=== PATIENT | male | born 1955 | race Caucasian/White ===

== ENCOUNTER → 2020-01-17 | Outpatient (CLI) | payer MEDICARE | END | disposition home or self-care (01) | LOC: CFH 09:53 | PROVIDERS: ATTEND Internal Medicine Cardiovascular Disease | DX: I08.3 Combined rheumatic disorders of mitral, aortic and tricuspid valves (principal); I11.9 Hypertensive heart disease without heart failure; I48.91 Unspecified atrial fibrillation | CPT/HCPCS: 93306 ==

== ENCOUNTER → 2020-05-06 | Outpatient (CLI) | payer MEDICARE ==
[~2020-05-06] MED LIST: OMNIPAQUE 350 MG/ML, 150 ML BOTTLE ONE
== END | disposition home or self-care (01) ==
LOC: CFH 09:32
PROVIDERS: ATTEND Internal Medicine Cardiovascular Disease
DX: I48.91 Unspecified atrial fibrillation (principal); I10 Essential (primary) hypertension; M47.814 Spondylosis without myelopathy or radiculopathy, thoracic region
CPT/HCPCS: 71046; 75572; Q9967

== ENCOUNTER 2020-05-09 06:00 | Observation (INO) | payer MEDICARE ==
[~2020-05-09] VITALS: Ht 172.7 cm; Wt 80.9 kg
[2020-05-09] MEDS ORDERED: DILT120C83 PO (06:22)
[2020-05-09] MEDS ORDERED: APIX5TAB PO (06:22)
[2020-05-09] MEDS ORDERED: FLEC50TA25 PO (06:22)
[2020-05-09 06:25] VITALS: BP 146/88
[2020-05-09] MEDS ORDERED: SODIUM CHLORIDE 0.9% 1,000 ML IV SCH ×2 (06:30)
[2020-05-09] MEDS ORDERED: MIDAZOLAM 1 MG/ML, 2ML ONE (09:02)
[2020-05-09] MEDS ORDERED: ONDANSETRON 2MG/ML, 2ML ONE ×2 (09:06→10:46)
[2020-05-09] MEDS ORDERED: PROPOFOL 10 MG/ML, 20ML ONE ×2 (09:06→10:46)
[2020-05-09] MEDS ORDERED: SUCCINYLCHOLINE 20 MG/ML, 10ML ONE (09:06)
[2020-05-09] MEDS ORDERED: ROCURONIUM 10MG/ML,5ML ONE (09:06)
[2020-05-09] MEDS ORDERED: FENTANYL PF 250 MCG/5ML ONE (09:24)
[2020-05-09] MEDS ORDERED: DEXAMETHASONE 4 MG/ML, 5ML ONE (10:46)
[2020-05-09] MEDS ORDERED: HEPARIN 1,000 UNITS/ML, 10ML ONE ×3 (10:46)
[2020-05-09] MEDS ORDERED: APIXABAN 5 MG TABLET ONE (12:13)
[2020-05-09] MEDS ORDERED: ACETAMINOPHEN 325 MG TABLET PO PRN (12:30)
[2020-05-09] MEDS: APIXABAN 5 MG TABLET PO SCH ×2 (12:47→21:19)
[2020-05-09 13:40] VITALS: BP 108/69
[2020-05-09 14:50] VITALS: BP 104/67
[2020-05-09 20:00] VITALS: BP 102/63
[2020-05-09] MEDS: COLCHICINE 0.6 MG CAPSULE PO SCH (20:41)
[2020-05-09] MEDS: FLECAINIDE 50MG TABLET PO SCH (20:41)
[2020-05-09] MEDS ORDERED: APIXABAN 5 MG TABLET PO SCH (21:00)
[2020-05-10 01:13] VITALS: BP 108/70
[2020-05-10] MEDS: COLCHICINE 0.6 MG CAPSULE PO SCH (08:38)
[2020-05-10] MEDS: FLECAINIDE 50MG TABLET PO SCH (08:38)
[2020-05-10 08:43] VITALS: BP 120/73
[2020-05-10] MEDS ORDERED: APIXABAN 5 MG TABLET PO SCH (09:00)
[2020-05-10] MEDS ORDERED: DILTIAZEM 120 MG CAP.ER.24H PO SCH (09:00)
[2020-05-10] MEDS ORDERED: COLC0.6C3 PO (12:18)
[2020-05-10] MEDS ORDERED: DILT120C83 PO (13:07)
== END 2020-05-10 13:25 | disposition home or self-care (01) ==
LOC: CACL 06:00 → ORIP 12:16 → 5SO 13:28 → DCLOUNGE 05-10 13:16
PROVIDERS: ADMIT Internal Medicine Cardiovascular Disease; ATTEND Internal Medicine Cardiovascular Disease
DX: I48.91 Unspecified atrial fibrillation (principal); Z20.822 Contact with and (suspected) exposure to COVID-19; I48.92 Unspecified atrial flutter; I10 Essential (primary) hypertension; Z79.899 Other long term (current) drug therapy
CPT/HCPCS: 85347; 93306; 93312; 93321; 93325; 93613; 93655; 93656; 93657; 93662; C1730; C1732; C1759; C1766; C1894; G0378; J0330; J1100; J1644; J2250; J2405; J2704; J3010; J3490; U0003